=== PATIENT | male | born 1975 | race Caucasian/White ===

== ENCOUNTER 2016-10-15 07:28 | Emergency (ER) | payer BC, OTHER ==
[2016-10-15 07:34] VITALS: BP 163/96
[2016-10-15 08:12] LABS: CHLORIDE,CL 102 mmol/L (98-115); SODIUM,NA 138 mmol/L (136-145)
[2016-10-15] MEDS ORDERED: Sodium Chloride 0.9% 5 ML Syringe FLUSH PRN (08:17)
[2016-10-15] MEDS ORDERED: Sodium Chloride 0.9% 1,000 ML IV ONE ×2 (08:18→08:52)
--- NOTE | 2016-10-15 08:27 | EDM.PDOC ---
ED HPI GENERAL MEDICAL PROBLEM - General Chief Complaint: General Stated Complaint: MUSCLE CRAMPING Time Seen by Provider: 10/15/16 08:17 Source of Information: Reports: Patient History Limitations: Reports: No Limitations - History of Present Illness INITIAL COMMENTS - FREE TEXT/NARRATIVE: PT STATES HE DEVELOPED BILAT LOWER EXT MUSCLE CRAMPING THIS AM WHILE AT WORK. NO H/O SAME OR EXTENSIVE WORK IN HOT ENVIRONMENT. DENIES CP, SOB, N/V/D, OR LACK OF FLUID INTAKE. ADMITS TO CHANGE IN COAG MEDS BUT WAS 10 DAYS AGO AND DENIES ANY RECENT BLEEDING. Onset: Today Onset Date: 10/15/16 Onset Time: 06:00 Duration: Hour(s): Location: Reports: Lower Extremity, Left, Lower Extremity, Right Quality: Reports: Other (CRAMPING) Improves with: Reports: None Worsens with: Reports: None Associated Symptoms: Reports: No Other Symptoms. Denies: Chest Pain, Shortness of Breath Bilateral Lower Leg Pain Score (Numeric/FACES): 10 - Related Data Allergies Allergy/AdvReac Type Severity Reaction Status Date / Time No Known Allergies Allergy Verified 10/15/16 07:38 Home Meds: Home Meds Albuterol Sulfate [Albuterol Sulfate HFA] 1 - 2 puff PO Q4H PRN 04/22/14 [ History] Metoprolol Tartrate [Lopressor] 50 mg PO BID 04/22/14 [History] Diltiazem [Cardizem CD] 120 mg PO DAILY 09/29/14 [History] Diltiazem [Dilacor XR] 240 mg PO DAILY 09/29/14 [History] Potassium Chloride [Klor-Con M20] 40 meq PO DAILY 09/29/14 [History] Acetaminophen [Tylenol] 650 mg PO Q4H PRN 09/12/15 [History] Furosemide [Lasix] 60 mg PO DAILY 09/12/15 [History] Rivaroxaban [Xarelto] 20 mg PO DAILY 09/12/15 [History] Azelastine/Fluticasone [Dymista Nasal [place]] 2 spray NASBOTH DAILY 10/15/16 [ History] Past Medical History Cardiovascular History: Reports: Blood Clots/VTE/DVT, Hypertension Other Cardiovascular History: IVC filter 2009 Respiratory History: Reports: Asthma, PE Gastrointestinal History: Reports: Other (See Below) Other Gastrointestinal History: large intestine removed 2015 Musculoskeletal History: Reports: Fracture Other Musculoskeletal History: L rib fx x4 2013 Neurological History: Reports: Other (See Below) Other Neuro History: on antidepresantin the past Psychiatric History: Reports: Anxiety, Depression Dermatologic History: Reports: Eczema Other Dermatologic History: eczema - Infectious Disease History Infectious Disease History: Reports: Chicken Pox, MRSA - Past Surgical History HEENT Surgical History: Reports: Adenoidectomy, Tonsillectomy Cardiovascular Surgical History: Reports: Other (See Below) Other Cardiovascular Surgeries/Procedures: massive PE 2009. Respiratory Surgical History: Reports: None Other Respiratory Surgeries/Procedures: Filter placed for PE GI Surgical History: Reports: Appendectomy, Colonoscopy Neurological Surgical History: Reports: None Musculoskeletal Surgical History: Reports: Arthroscopic Knee Dermatological Surgical History: Reports: None Social & Family History - Tobacco Use Smoking Status *Q: Current Every Day Smoker Years of Tobacco use: 20 Packs/Tins Daily: 0.5 Used Tobacco, but Quit: No Month Tobacco Last Used: July 2015 Second Hand Smoke Exposure: No - Caffeine Use Caffeine Use: Reports: Tea - Alcohol Use Days Per Week of Alcohol Use: 0 - Recreational Drug Use Recreational Drug Use: No ED ROS GENERAL - Review of Systems Review Of Systems: ROS reveals no pertinent complaints other than HPI. Constitutional: Reports: No Symptoms HEENT: Reports: No Symptoms Respiratory: Reports: No Symptoms Cardiovascular: Reports: No Symptoms Endocrine: Reports: No Symptoms : Reports: No Symptoms Musculoskeletal: Reports: Muscle Pain, Muscle Stiffness Skin: Reports: No Symptoms Neurological: Reports: No Symptoms Psychiatric: Reports: No Symptoms Hematologic/Lymphatic: Reports: No Symptoms Immunologic: Reports: No Symptoms ED EXAM, GENERAL - Physical Exam Exam: See Below Exam Limited By: No Limitations General Appearance: Alert, WD/WN, No Apparent Distress Nose: Normal Inspection, No Blood Throat/Mouth: Normal Inspection, Normal Oropharynx, No Airway Compromise Head: Atraumatic, Normocephalic Neck: Normal Inspection, Supple, Non-Tender Respiratory/Chest: No Respiratory Distress, Lungs Clear, Normal Breath Sounds, No Accessory Muscle Use, Chest Non-Tender Cardiovascular: Regular Rate, Rhythm, No Murmur Peripheral Pulses: 2+: Femoral (L), Femoral (R), Popliteal (L), Popliteal (R), Posterior Tibial (L), Posterior Tibial (R), Dorsalis Pedis (L), Dorsalis Pedis ( R) GI/Abdominal: Normal Bowel Sounds, Soft, Non-Tender Back Exam: Normal Inspection. No: CVA Tenderness (L), CVA Tenderness (R) Extremities: No Pedal Edema, Leg Pain. No: Pedal Edema, Slow Capillary Refill, Joint Swelling, Increased Warmth, Mottled, Pallor, Redness Neurological: Alert, Oriented, Normal Cognition Psychiatric: Normal Affect, Normal Mood Skin Exam: Warm, Dry, Intact, Normal Color, No Rash Lymphatic: No Adenopathy Course - Vital Signs Last Recorded V/S: Last Vital Signs Temp 98.8 F 10/15/16 07:29 Pulse 77 10/15/16 07:29 Resp 20 10/15/16 07:29 BP 163/96 H 10/15/16 07:29 Pulse Ox 100 10/15/16 07:29 - Orders/Labs/Meds Orders: Active Orders 24 hr Category Date Time Status Peripheral IV Care [RC] . DIRECTED Care 10/15/16 08:18 Ordered URINALYSIS W/MICROSCOPIC [UA W/MICROSCOPIC] [URIN] Stat Lab 10/15/16 08:17 Uncollected Diazepam [Valium] Med 10/15/16 08:18 Once 5 mg IVPUSH ONETIME ONE Sodium Chloride 0.9% @ 999 MLS/HR (1000ml) Med 10/15/16 08:18 Ordered Sodium Chloride 0.9% [Normal Saline] 1,000 ml IV .BOLUS Sodium Chloride 0.9% [Syrex Flush] Med 10/15/16 08:17 Ordered 5 ml FLUSH Q8HR PRN Peripheral IV Insertion Adult [OM.PC] Routine Oth 10/15/16 08:17 Ordered Labs: Laboratory Tests 10/15/16 10/15/16 10/15/16 Range/Units 07:45 07:45 07:45 WBC 14.0 H (5.0-10.0) 10^3/uL RBC 5.19 (4.50-6.00) 10^6/uL Hgb 15.0 (13.0-17.0) g/dL Hct 44.6 (40.0-52.0) % MCV 85.8 (82.0-92.0) fL MCH 29.0 (27.0-31.0) pg MCHC 33.8 (32.0-36.0) g/dL RDW 13.5 (11.5-14.5) % Plt Count 366 H (150-300) 10^3/uL MPV 7.4 (7.4-10.4) fL Neut % (Auto) 70.7 H (50.0-70.0) % Lymph % (Auto) 18.0 L (20.0-40.0) % [place] % (Auto) 9.3 H (2.0-8.0) % Eos % (Auto) 1.2 (1.0-3.0) % Baso % (Auto) 0.8 (0.0-1.0) % Neut # (Auto) 9.9 H (2.5-7.0) 10^3/uL Lymph # (Auto) 2.5 (1.0-4.0) 10^3/uL [place] # (Auto) 1.3 H (0.1-0.8) 10^3/uL Eos # (Auto) 0.2 (0.1-0.3) 10^3/uL Baso # (Auto) 0.1 (0.0-0.1) 10^3/uL PT 11.3 (8.9-11.4) SEC INR 1.1 (0.9-1.1) APTT 30.1 (20.8-31.2) SEC Sodium 138 (136-145) mmol/L Potassium 3.8 (3.3-5.3) mmol/L Chloride 102 (98-115) mmol/L Carbon Dioxide 25.7 (21.0-32.0) mmol/L BUN 13 (6-25) mg/dL Creatinine 0.72 (0.51-1.17) mg/dL Est Cr Clr Drug Dosing TNP Estimated GFR (MDRD) > 60 mL/min Glucose 113 H (70-110) mg/dL Calcium 8.8 (8.7-10.3) mg/dL - Re-Assessments/Exams Free Text/Narrative Re-Assessment/Exam: 10/15/16 09:21 PT AFEBRILE, NONTOXIC APPEARING, VSS, CRAMPING RESOLVED. Departure - Departure Time of Disposition: 10:40 Disposition: Home, Self-Care 01 Condition: Good Clinical Impression: Dehydration, mild - Discharge Information Instructions: Muscle Cramps and Spasms, [id number], Dehydration, Adult, Easy- to-Read Forms: ED Department Discharge Additional Instructions: F/U WITH PCP IN NEXT 2-3 DAYS - My Orders Last 24 Hours: My Active Orders 10/15/16 08:17 URINALYSIS W/MICROSCOPIC [UA W/MICROSCOPIC] [URIN] Stat Sodium Chloride 0.9% [Syrex Flush] 5 ml FLUSH Q8HR PRN Peripheral IV Insertion Adult [OM.PC] Routine 10/15/16 08:18 Peripheral IV Care [RC] . DIRECTED Diazepam [Valium] 5 mg IVPUSH ONETIME ONE Sodium Chloride 0.9% @ 999 MLS/HR (1000ml) Sodium Chloride 0.9% [Normal Saline] 1,000 ml IV .BOLUS - Assessment/Plan Last 24 Hours: My Active Orders 10/15/16 08:17 URINALYSIS W/MICROSCOPIC [UA W/MICROSCOPIC] [URIN] Stat Sodium Chloride 0.9% [Syrex Flush] 5 ml FLUSH Q8HR PRN Peripheral IV Insertion Adult [OM.PC] Routine 10/15/16 08:18 Peripheral IV Care [RC] . DIRECTED Diazepam [Valium] 5 mg IVPUSH ONETIME ONE Sodium Chloride 0.9% @ 999 MLS/HR (1000ml) Sodium Chloride 0.9% [Normal Saline] 1,000 ml IV .BOLUS Assessment:: DEHYDRATION Plan: F/U WITH PCP
== END 2016-10-15 10:45 | disposition home or self-care (01) ==
LOC: KA.ED 07:28
DX: E86.0 Dehydration (principal); J45.909 Unspecified asthma, uncomplicated; F41.9 Anxiety disorder, unspecified; F17.210 Nicotine dependence, cigarettes, uncomplicated; F32.9 Major depressive disorder, single episode, unspecified; Z86.711 Personal history of pulmonary embolism; Z90.89 Acquired absence of other organs
CPT/HCPCS: 36415; 80048; 81001; 82550; 85025; 85610; 85730; 96361; 96374; 99283; J3360; J7030

== ENCOUNTER 2018-12-03 17:42 | Emergency (ER) | payer SELFPAY ==
[2018-12-03 18:02] VITALS: BP 130/90; PULSE 124
--- NOTE | 2018-12-03 18:57 | EDM.PDOC ---
ED HPI GENERAL MEDICAL PROBLEM - General Chief Complaint: General Stated Complaint: NEEDS TO DETOX Time Seen by Provider: 12/03/18 18:38 Source of Information: Reports: Patient, Other (friend) History Limitations: Reports: No Limitations - History of Present Illness INITIAL COMMENTS - FREE TEXT/NARRATIVE: Patient presents requesting detox placement. He is having alcohol withdrawal and self-medicating with alcohol to treat the symptoms. For the last 2.5 weeks he has been drinking heavily; at least 18 drinks/day. The last few days he has been trying to stop but requires 12 drinks/day to keep withdrawal symptoms at bay. He vomits every morning both with heavy drinking and in withdrawal. He starts to sweat due to withdrawal and drinks to treat that. Prior to the last 2.5 weeks he had been alcohol free for five years but had gone through treatment 6 times (30 days x 4, 45 days x 1, 90 days x 1). He has talked to [facility] and he could do treatment there but not detox. Last drink was 4 hours ago. - Related Data Allergies Allergy/AdvReac Type Severity Reaction Status Date / Time No Known Allergies Allergy Verified 12/03/18 18:02 Home Meds: Home Meds Metoprolol Tartrate [Lopressor] 50 mg PO BID 04/22/14 [History] Diltiazem [Cardizem CD] 120 mg PO DAILY 09/29/14 [History] Diltiazem [Dilacor XR] 240 mg PO DAILY 09/29/14 [History] Acetaminophen [Tylenol] 650 mg PO Q4H PRN 09/12/15 [History] Rivaroxaban [Xarelto] 20 mg PO DAILY@2100 09/12/15 [History] Albuterol [Ventolin HFA] 1 - 2 puff INH Q4H PRN 02/18/18 [History] Budesonide/Formoterol Fumarate [Symbicort 160-4.5 Mcg Inhaler] 2 puff IH BID 07/03 [History] Ibuprofen [Advil] 200 - 600 mg PO Q6H PRN 02/18/18 [History] Triamcinolone Acetonide [Kenalog 0.1% Crm] 1 gm TOP TID PRN 02/18/18 [History] Topiramate [Topamax] 25 mg PO BID #30 tab 02/23/18 [Rx] Furosemide [Lasix] 60 mg PO DAILY 12/03/18 [History] Potassium Chloride 40 meq PO DAILY 12/03/18 [History] Past Medical History HEENT History: Reports: None Cardiovascular History: Reports: Blood Clots/VTE/DVT, Hypertension Other Cardiovascular History: IVC filter 2009 Respiratory History: Reports: Asthma, PE Gastrointestinal History: Reports: Other (See Below) Other Gastrointestinal History: large intestine removed 2015 Genitourinary History: Reports: None Musculoskeletal History: Reports: Fracture Other Musculoskeletal History: L rib fx x4 2013 Neurological History: Reports: Other (See Below) Other Neuro History: on antidepresantin the past Psychiatric History: Reports: Anxiety, Depression Dermatologic History: Reports: Eczema Other Dermatologic History: eczema - Infectious Disease History Infectious Disease History: Reports: Chicken Pox, MRSA - Past Surgical History HEENT Surgical History: Reports: Adenoidectomy, Tonsillectomy Cardiovascular Surgical History: Reports: Other (See Below) Other Cardiovascular Surgeries/Procedures: massive PE 2009. Respiratory Surgical History: Reports: None Other Respiratory Surgeries/Procedures: Filter placed for PE GI Surgical History: Reports: Appendectomy, Colonoscopy Neurological Surgical History: Reports: None Musculoskeletal Surgical History: Reports: Arthroscopic Knee Dermatological Surgical History: Reports: None Social & Family History - Family History Family Medical History: Noncontributory - Tobacco Use Smoking Status *Q: Current Every Day Smoker Years of Tobacco use: 1 Packs/Tins Daily: 0.3 Second Hand Smoke Exposure: No - Caffeine Use Caffeine Use: Reports: None - Alcohol Use Days Per Week of Alcohol Use: 7 Number of Drinks Per Day: 6 Total Drinks Per Week: 42 - Recreational Drug Use Recreational Drug Use: Yes Drug Use in Last 12 Months: Yes Recreational Drug Type: Reports: Marijuana/Hashish ED ROS GENERAL - Review of Systems Review Of Systems: See Below Constitutional: Denies: Fever, Chills, Weakness HEENT: Reports: No Symptoms Respiratory: Denies: Shortness of Breath, Cough Cardiovascular: Denies: Chest Pain, Lightheadedness, Syncope Endocrine: Reports: No Symptoms GI/Abdominal: Reports: Abdominal Pain (related to vomiting), Diarrhea (chronic since total colectomy due to cancer), Decreased Appetite (hasn't eaten in 3 days ), Vomiting : Denies: Dysuria, Flank Pain Musculoskeletal: Reports: No Symptoms Skin: Reports: Diaphoresis (daily, withdrawal related). Denies: Cyanosis, Jaundice, Mottled, Pallor Neurological: Denies: Confusion, Dizziness, Seizure, Syncope, Trouble Speaking, Difficulty Walking Psychiatric: Denies: Agitation, Anxiety, Confusion Hematologic/Lymphatic: Denies: Anemia ED EXAM, GENERAL - Physical Exam Exam: See Below Exam Limited By: No Limitations General Appearance: Alert, WD/WN, No Apparent Distress Eye Exam: Bilateral Eye: EOMI, Normal Inspection, PERRL Ears: Normal External Exam, Hearing Grossly Normal Nose: Normal Inspection, No Blood Throat/Mouth: Normal Inspection, Normal Lips, Normal Voice, No Airway Compromise Head: Atraumatic, Normocephalic Neck: Normal Inspection, Full Range of Motion Respiratory/Chest: No Respiratory Distress, Lungs Clear, Normal Breath Sounds, No Accessory Muscle Use Cardiovascular: Regular Rate, Rhythm, No Murmur GI/Abdominal: Normal Bowel Sounds, Soft, No Organomegaly, No Distention, Tender (epigastric) Back Exam: Normal Inspection, Full Range of Motion. No: CVA Tenderness (L), CVA Tenderness (R) Extremities: Normal Inspection, Normal Range of Motion Neurological: Alert, Oriented, Normal Cognition, No Motor/Sensory Deficits Psychiatric: Normal Affect, Normal Mood Skin Exam: Warm, Dry, Intact, Normal Color, No Rash Course - Vital Signs Last Recorded V/S: Last Vital Signs Temp 98.3 F 12/03/18 17:56 Pulse 124 H 12/03/18 17:56 Resp 18 12/03/18 17:56 BP 130/90 12/03/18 17:56 Pulse Ox 93 L 12/03/18 17:56 - Orders/Labs/Meds Labs: Laboratory Tests 12/03/18 12/03/18 12/03/18 Range/Units 18:30 18:30 18:56 WBC 9.34 (5.00-10.00) 10^3/uL RBC 4.52 (4.50-6.00) 10^6/uL Hgb 16.3 (13.0-17.0) g/dL Hct 46.3 (40.0-52.0) % MCV 102.4 H D (82.0-92.0) fL MCH 36.1 H (27.0-31.0) pg MCHC 35.2 (32.0-36.0) g/dL RDW 15.6 H (11.5-14.5) % Plt Count 317 (150-400) 10^3/uL MPV 8.7 (7.4-10.4) fL Immature Gran % (Auto) 0.3 (0.0-5.0) % Neut % (Auto) 55.7 (50.0-70.0) % Lymph % (Auto) 28.8 (20.0-40.0) % [place] % (Auto) 11.3 H (2.0-8.0) % Eos % (Auto) 2.9 (1.0-3.0) % Baso % (Auto) 1.0 (0.0-1.0) % Immature Gran # (Auto) 0.03 (0.00-0.50) 10^3/uL Neut # (Auto) 5.20 (2.50-7.00) 10^3/uL Lymph # (Auto) 2.69 (1.00-4.00) 10^3/uL [place] # (Auto) 1.06 H (0.10-0.80) 10^3/uL Eos # (Auto) 0.27 (0.10-0.30) 10^3/uL Baso # (Auto) 0.09 (0.00-0.10) 10^3/uL Sodium 141 (136-145) mmol/L Potassium 3.7 (3.3-5.3) mmol/L Chloride 103 (98-115) mmol/L Carbon Dioxide 23.9 (21.0-32.0) mmol/L Anion Gap 17.8 H (5-15) mmol/L BUN 4 L (6-25) mg/dL Creatinine 0.59 (0.51-1.17) mg/dL Est Cr Clr Drug Dosing 194.94 mL/min Estimated GFR (MDRD) > 60 mL/min Glucose 92 (75 - 99) mg/dL Calcium 9.0 (8.7-10.3) mg/dL Total Bilirubin 0.5 (0.2-1.0) mg/dL AST 96 H (15-37) U/L ALT 62 (12-78) U/L Alkaline Phosphatase 116 (46-116) IU/L Total Protein 7.6 (6.4-8.2) g/dL Albumin 3.72 (3.00-4.80) g/dL Urine Opiates Screen Negative (NEGATIVE) Ur Oxycodone Screen Negative (NEGATIVE) Urine Methadone Screen Negative (NEGATIVE) Ur Propoxyphene Screen Negative (NEGATIVE) Ur Barbiturates Screen Negative (NEGATIVE) Ur Tricyclics Screen Negative (NEGATIVE) Ur Phencyclidine Scrn Negative (NEGATIVE) Ur Amphetamine Screen Negative (NEGATIVE) U Methamphetamines Scrn Negative (NEGATIVE) U Benzodiazepines Scrn Negative (NEGATIVE) U Cocaine Metab Screen Negative (NEGATIVE) U Marijuana (THC) Screen Positive H (NEGATIVE) Ethyl Alcohol 378 H* (NONE DETECTED) mg/dL - Re-Assessments/Exams Free Text/Narrative Re-Assessment/Exam: 12/03/18 19:42 ETOH 378. Marijuana positive. Rest of labs okay. Patient would like to go to detox at [facility] [place] if available. I called them and they will call back shortly. 12/03/18 20:54 Patient left while we were waiting console manager back from [facility] in [place] regarding detox. I didn't realize he had gone for several minutes as he must have slipped out the back exam door with his ride (so at least he isn't driving) . We called him and he says he is going to [facility] in [place] tomorrow. I let [facility] know this and hopefully they can get him into detox tomorrow if he shows. Departure - Departure Time of Disposition: 20:30 Disposition: Against Medical Advice 07 Condition: Good Clinical Impression: Alcohol dependence with withdrawal, unspecified Qualifiers: Complication of substance-induced condition: uncomplicated Qualified Code(s): F10.230 - Alcohol dependence with withdrawal, uncomplicated Clinical Impression: (Ruled Out): Acute renal failure due to angiotensin converting enzyme (MONICA) inhibitor, Hypotension - Discharge Information Referrals: Cielo Gutierrez MD [Primary Care Provider] - Forms: ED Department Discharge
[2018-12-03 19:04] LABS: ANION GAP 17.8 mmol/L (5-15); CHLORIDE,CL 103 mmol/L (98-115); SODIUM,NA 141 mmol/L (136-145)
[2018-12-03 19:11] LABS: TCA SCREEN,URINE NEGATIVE (NEGATIVE); THC SCREEN,URINE 50 NG/ML POSITIVE (NEGATIVE)
[2018-12-03 19:12] LABS: BARBITURATE SCREEN,URINE NEGATIVE (NEGATIVE); BENZODIAZEPINES SCREEN,URINE NEGATIVE (NEGATIVE)
== END 2018-12-03 21:00 | disposition left against medical advice (07) ==
LOC: KA.ED 17:42
DX: F10.230 Alcohol dependence with withdrawal, uncomplicated (principal); I10 Essential (primary) hypertension; F17.210 Nicotine dependence, cigarettes, uncomplicated; Z98.890 Other specified postprocedural states
CPT/HCPCS: 36415; 80053; 80305-QW; 85025; 99283; 99284; G0480

== ENCOUNTER 2019-01-13 12:06 | Emergency (ER) | payer MEDICAID, OTHER ==
[2019-01-13 12:27] VITALS: BP 151/92; PULSE 113
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
== END 2019-01-13 13:48 ==
LOC: KA.ED 12:06
DX: F32.9 Major depressive disorder, single episode, unspecified (principal); I10 Essential (primary) hypertension; J45.909 Unspecified asthma, uncomplicated; Z86.718 Personal history of other venous thrombosis and embolism; Z86.711 Personal history of pulmonary embolism; Z87.891 Personal history of nicotine dependence; Z79.01 Long term (current) use of anticoagulants; Z79.51 Long term (current) use of inhaled steroids; Z79.899 Other long term (current) drug therapy
CPT/HCPCS: 99284

== ENCOUNTER 2019-08-15 23:46 | Emergency (ER) | payer SELFPAY ==
[2019-08-16] MEDS ORDERED: Albuterol/Ipratropium 3.0-0.5 MG/3 ML Neb Soln NEB ONE (00:06)
--- NOTE | 2019-08-16 00:17 | EDM.PDOC ---
ED HPI GENERAL MEDICAL PROBLEM - General Chief Complaint: Behavioral/Psych Stated Complaint: needs clearance for [facility] Time Seen by Provider: 08/16/19 00:05 Source of Information: Reports: Patient History Limitations: Reports: No Limitations - History of Present Illness INITIAL COMMENTS - FREE TEXT/NARRATIVE: Patient brought to ER by a friend. Another friend called prior to arrival with info that patient was suicidal and friend had called [facility] in [place] who could take him for mental health treatment but needed medical clearance first. Patient tells me that his primary problem is difficulty breathing, cough and sore throat for the last 6 weeks and that he "just can't do this anymore". He admits to depression and thoughts of suicide. He has been on courses of amoxicillin and zithromax, as well as a 5-day course of prednisone, in the last 6 weeks without improvement. He has asthma and uses Symbicort bid and rescue inhaler at home. He has been tested for covid twice (negative) and isn't aware of any covid contacts. - Related Data Allergies Allergy/AdvReac Type Severity Reaction Status Date / Time No Known Drug Allergies Allergy Other Verified 08/16/19 00:38 Give no Benzoids Allergy Severe Other Uncoded 01/16/19 10:49 GIVE NO DEPENDANT MEDICATIONS Allergy Severe Other Uncoded 01/13/19 12:10 Home Meds: Home Meds Metoprolol Tartrate [Lopressor] 50 mg PO BID 04/22/14 [History] Diltiazem [Cardizem CD] 120 mg PO DAILY 09/29/14 [History] Diltiazem [Dilacor XR] 240 mg PO DAILY 09/29/14 [History] Albuterol [Ventolin HFA] 1 - 2 puff INH Q4H PRN 02/18/18 [History] Budesonide/Formoterol Fumarate [Symbicort 160-4.5 Mcg Inhaler] 2 puff IH BID 07/03 [History] Potassium Chloride 40 meq PO DAILY 12/03/18 [History] Past Medical History HEENT History: Reports: None Cardiovascular History: Reports: Blood Clots/VTE/DVT, Hypertension Other Cardiovascular History: IVC filter 2009 Respiratory History: Reports: Asthma, PE Gastrointestinal History: Reports: Other (See Below) Other Gastrointestinal History: large intestine removed aug. 2016 Genitourinary History: Reports: None Musculoskeletal History: Reports: Fracture Other Musculoskeletal History: L rib fx x4 2013 Neurological History: Reports: Other (See Below) Other Neuro History: on antidepresantin the past Psychiatric History: Reports: Anxiety, Depression Dermatologic History: Reports: Eczema Other Dermatologic History: eczema - Infectious Disease History Infectious Disease History: Reports: Chicken Pox, MRSA - Past Surgical History HEENT Surgical History: Reports: Adenoidectomy, Tonsillectomy Cardiovascular Surgical History: Reports: Other (See Below) Other Cardiovascular Surgeries/Procedures: massive PE 2009. Respiratory Surgical History: Reports: None Other Respiratory Surgeries/Procedures: Filter placed for PE GI Surgical History: Reports: Appendectomy, Colonoscopy Neurological Surgical History: Reports: None Musculoskeletal Surgical History: Reports: Arthroscopic Knee Dermatological Surgical History: Reports: None Social & Family History - Family History Family Medical History: Noncontributory - Caffeine Use Caffeine Use: Reports: None ED ROS GENERAL - Review of Systems Review Of Systems: See Below Constitutional: Denies: Fever, Chills, Malaise, Weakness HEENT: Reports: Throat Pain. Denies: Ear Pain, Throat Swelling, Vision Change Respiratory: Reports: Shortness of Breath, Cough Cardiovascular: Denies: Chest Pain, Lightheadedness, Syncope GI/Abdominal: Denies: Abdominal Pain, Vomiting : Reports: No Symptoms Musculoskeletal: Reports: No Symptoms Skin: Denies: Cyanosis, Jaundice, Mottled, Pallor, Diaphoresis Neurological: Denies: Confusion, Dizziness, Headache, Numbness, Seizure, Syncope , Trouble Speaking, Difficulty Walking Psychiatric: Reports: Anxiety, Depression, Suicidal Ideation ED EXAM, GENERAL - Physical Exam Exam: See Below Exam Limited By: No Limitations General Appearance: Alert, WD/WN, No Apparent Distress Eye Exam: Bilateral Eye: EOMI, Normal Inspection, PERRL Ears: Normal External Exam, Hearing Grossly Normal Nose: Normal Inspection, No Blood Throat/Mouth: Normal Lips, Normal Voice, No Airway Compromise, Inflammation (of posterior pharynx) Head: Atraumatic, Normocephalic Neck: Normal Inspection, Full Range of Motion Respiratory/Chest: Respiratory Distress (mild), Wheezing (mild with inspiration , worse with expiration), Prolonged Expiration, Other (tachypnea). No: Crackles , Rales, Rhonchi, Stridor Cardiovascular: No Murmur, Tachycardia GI/Abdominal: No Distention Back Exam: Normal Inspection, Full Range of Motion Extremities: Normal Inspection, Normal Range of Motion Neurological: Alert, Oriented, Normal Cognition, No Motor/Sensory Deficits Psychiatric: Anxious, Depressed Mood Skin Exam: Warm, Dry, Intact, Normal Color, No Rash Course - Vital Signs Last Recorded V/S: Last Vital Signs Temp 95.6 F L 08/15/19 23:46 Pulse 114 H 08/16/19 01:14 Resp 20 08/16/19 01:14 BP 131/92 H 08/16/19 01:14 Pulse Ox 99 08/16/19 01:14 - Orders/Labs/Meds Orders: Active Orders 24 hr Category Date Time Status EKG Documentation Completion [RC] ASDIRECTED Care 08/16/19 00:28 Ordered RT Aerosol Therapy [RC] ASDIRECTED Care 08/16/19 00:06 Ordered Chest 2V [CR] Stat Exams 08/16/19 00:06 Ordered Sodium Chloride 0.9% @ 999 MLS/HR (1000ml) Med 08/16/19 01:31 Ordered Sodium Chloride 0.9% [Normal Saline] 1,000 ml IV .BOLUS Sodium Chloride 0.9% [Saline Flush] Med 08/16/19 00:45 Active 10 ml FLUSH Q8HR PRN Saline Lock Insert [OM.PC] Routine Oth 08/16/19 00:45 Ordered EKG 12 Lead [EK] Stat Ther 08/16/19 00:27 Ordered Medication Orders Sodium Chloride (Normal Saline) 1,000 mls @ 999 mls/hr IV .BOLUS ONE Stop: 08/16/19 02:31 Sodium Chloride (Saline Flush) 10 ml FLUSH Q8HR PRN PRN Reason: keep vein open Last Admin: 08/16/19 01:12 Dose: 10 ml Labs: Laboratory Tests 08/16/19 08/16/19 08/16/19 Range/Units 00:50 00:50 00:50 WBC 8.41 (5.00-10.00) 10^3/uL RBC 4.82 (4.50-6.00) 10^6/uL Hgb 16.5 D (13.0-17.0) g/dL Hct 47.1 (40.0-52.0) % MCV 97.7 H (82.0-92.0) fL MCH 34.2 H (27.0-31.0) pg MCHC 35.0 (32.0-36.0) g/dL RDW 12.8 (11.5-14.5) % Plt Count 185 (150-400) 10^3/uL MPV 9.8 (7.4-10.4) fL Immature Gran % (Auto) 0.1 (0.0-5.0) % Neut % (Auto) 46.3 L (50.0-70.0) % Lymph % (Auto) 36.3 (20.0-40.0) % [place] % (Auto) 12.7 H (2.0-8.0) % Eos % (Auto) 3.3 H (1.0-3.0) % Baso % (Auto) 1.3 H (0.0-1.0) % Neut # (Auto) 3.89 (2.50-7.00) 10^3/uL Lymph # (Auto) 3.05 (1.00-4.00) 10^3/uL [place] # (Auto) 1.07 H (0.10-0.80) 10^3/uL Eos # (Auto) 0.28 (0.10-0.30) 10^3/uL Baso # (Auto) 0.11 H (0.00-0.10) 10^3/uL Immature Gran # (Auto) 0.01 (0.00-0.50) 10^3/uL Sodium 140 (136-145) mmol/L Potassium 4.5 (3.3-5.3) mmol/L Chloride 102 (98-115) mmol/L Carbon Dioxide 19.8 L (21.0-32.0) mmol/L Anion Gap 22.7 H (5-15) mmol/L BUN 7 (6-25) mg/dL Creatinine 0.75 (0.51-1.17) mg/dL Est Cr Clr Drug Dosing 151.79 mL/min Estimated GFR (MDRD) > 60 mL/min Glucose 89 (75 - 99) mg/dL Lactic Acid 4.1 H (0.4-2.0) mmol/L Calcium 9.0 (8.7-10.3) mg/dL Ethyl Alcohol (NONE DETECTED) mg/dL 08/16/19 Range/Units 00:50 WBC (5.00-10.00) 10^3/uL RBC (4.50-6.00) 10^6/uL Hgb (13.0-17.0) g/dL Hct (40.0-52.0) % MCV (82.0-92.0) fL MCH (27.0-31.0) pg MCHC (32.0-36.0) g/dL RDW (11.5-14.5) % Plt Count (150-400) 10^3/uL MPV (7.4-10.4) fL Immature Gran % (Auto) (0.0-5.0) % Neut % (Auto) (50.0-70.0) % Lymph % (Auto) (20.0-40.0) % [place] % (Auto) (2.0-8.0) % Eos % (Auto) (1.0-3.0) % Baso % (Auto) (0.0-1.0) % Neut # (Auto) (2.50-7.00) 10^3/uL Lymph # (Auto) (1.00-4.00) 10^3/uL [place] # (Auto) (0.10-0.80) 10^3/uL Eos # (Auto) (0.10-0.30) 10^3/uL Baso # (Auto) (0.00-0.10) 10^3/uL Immature Gran # (Auto) (0.00-0.50) 10^3/uL Sodium (136-145) mmol/L Potassium (3.3-5.3) mmol/L Chloride (98-115) mmol/L Carbon Dioxide (21.0-32.0) mmol/L Anion Gap (5-15) mmol/L BUN (6-25) mg/dL Creatinine (0.51-1.17) mg/dL Est Cr Clr Drug Dosing mL/min Estimated GFR (MDRD) mL/min Glucose (75 - 99) mg/dL Lactic Acid (0.4-2.0) mmol/L Calcium (8.7-10.3) mg/dL Ethyl Alcohol 368 H* (NONE DETECTED) mg/dL Meds: Medications Generic Name Dose Route Start Last Admin Trade Name Freq PRN Reason Stop Dose Admin Sodium Chloride 1,000 mls @ 999 mls/hr 08/16/19 01:31 Normal Saline IV 08/16/19 02:31 .BOLUS ONE Sodium Chloride 10 ml 08/16/19 00:45 08/16/19 01:12 Saline Flush FLUSH 10 ml Q8HR PRN Administration keep vein open Discontinued Medications Generic Name Dose Route Start Last Admin Trade Name Collin PRN Reason Stop Dose Admin Albuterol/Ipratropium 3 ml 08/16/19 00:06 08/16/19 00:16 Duoneb 3.0-0.5 Mg/3 Ml NEB 08/16/19 00:07 3 ml ONETIME ONE Administration Lorazepam 0.5 mg 08/16/19 00:32 08/16/19 01:08 Ativan PO 08/16/19 00:33 0.5 mg ONETIME ONE Administration Lorazepam Confirm 08/16/19 00:34 08/16/19 01:08 Ativan Administered 08/16/19 00:35 0.5 mg Dose Administration 0.5 mg .ROUTE .STK-MED ONE Methylprednisolone Sodium Succinate 125 mg 08/16/19 00:42 08/16/19 01:09 Solu-Medrol IVPUSH 08/16/19 00:43 125 mg ONETIME ONE Administration - Re-Assessments/Exams Free Text/Narrative Re-Assessment/Exam: 08/16/19 00:44 In xray patient told tech that he wanted euthanasia. Patient is obviously anxious with mild agitation. He is coughing frequently. He tells me he drinks more than 8 cups of water daily. He has had 3 beers today ; uses marijuana occasionally. 08/16/19 01:28 Waiting information assistant back from [facility] hospitalist. Patient agreed to transfer to [place] to see pulmonology. I feel he needs to get the respiratory issues cleared up before psychiatric treatment but I feel should definitely get the psychiatric treatment immediately following medical clearance. He is exhibiting severe depression and is at risk of self harm I feel. 08/16/19 01:32 Labs are in and Etoh is 368. CBC and BMP are okay. 08/16/19 01:45 Dr. Mccann, hospitalist at [facility], called back and I discussed the complicated details of this patient with him. He accepted for transfer and they will have a sitter with him due to the suicidal ideation and the intoxication. We wait now information assistant back from [facility] with bed availability before ambulance transfer. 08/16/19 02:03 Late in the ER course we learned that patient had a history of DVT but hasn't been taking his Xarelto due to cost. With the 6-week course of current symptoms and good oxygen saturation currently, I feel this is stable and most likely asthma rather than PE. Discussed this with hospitalist and we considered CT before departure or anti-coagulation but we felt transfer with CT there prn would be best at this point. Departure - Departure Time of Disposition: 01:51 Disposition: DC/Tfer to Acute Hospital 02 Condition: Serious Clinical Impression: Respiratory distress, acute, Asthma, Anxiety, Depression, Suicidal ideation, Depression with suicidal ideation, Alcohol intoxication - Discharge Information Forms: ED Department Discharge Sepsis Event Note - Focused Exam Vital Signs: Vital Signs Temp Pulse Resp BP Pulse Ox 08/16/19 01:14 114 H 20 131/92 H 99 08/15/19 23:46 95.6 F L 123 H 24 H 117/89 95 Date Exam was Performed: 08/16/19 Time Exam was Performed: 01:51 - My Orders Last 24 Hours: My Active Orders 08/16/19 00:06 RT Aerosol Therapy [RC] ASDIRECTED Chest 2V [CR] Stat 08/16/19 00:27 EKG 12 Lead [EK] Stat 08/16/19 00:28 EKG Documentation Completion [RC] ASDIRECTED 08/16/19 00:45 Sodium Chloride 0.9% [Saline Flush] 10 ml FLUSH Q8HR PRN Saline Lock Insert [OM.PC] Routine 08/16/19 01:31 Sodium Chloride 0.9% @ 999 MLS/HR (1000ml) Sodium Chloride 0.9% [Normal Saline] 1,000 ml IV .BOLUS - Assessment/Plan Last 24 Hours: My Active Orders 08/16/19 00:06 RT Aerosol Therapy [RC] ASDIRECTED Chest 2V [CR] Stat 08/16/19 00:27 EKG 12 Lead [EK] Stat 08/16/19 00:28 EKG Documentation Completion [RC] ASDIRECTED 08/16/19 00:45 Sodium Chloride 0.9% [Saline Flush] 10 ml FLUSH Q8HR PRN Saline Lock Insert [OM.PC] Routine 08/16/19 01:31 Sodium Chloride 0.9% @ 999 MLS/HR (1000ml) Sodium Chloride 0.9% [Normal Saline] 1,000 ml IV .BOLUS
[2019-08-16] MEDS ORDERED: LORazepam 0.5 MG Tab PO ONE (00:32)
[2019-08-16] MEDS ORDERED: LORazepam 0.5 MG Tab ONE (00:34)
[2019-08-16] MEDS ORDERED: methylPREDNISolone Sodium Succinate 125 MG/2 ML SDV IVPUSH ONE (00:42)
[2019-08-16] MEDS ORDERED: Sodium Chloride 0.9% 10 ML Syringe FLUSH PRN (00:45)
[2019-08-16 01:27] LABS: ANION GAP 22.7 mmol/L (5-15); CHLORIDE,CL 102 mmol/L (98-115); SODIUM,NA 140 mmol/L (136-145)
[2019-08-16] MEDS ORDERED: Sodium Chloride 0.9% 1,000 ML IV ONE (01:31)
--- NOTE | 2019-08-16 09:23 | CR ---
[id number] RAD/RAD Chest PA And Lateral EXAM: RAD Chest PA And Lateral INDICATION: WHEEZING COMPARISON: February 18, 2018. DISCUSSION: Median sternotomy wires. Cardiomediastinal silhouette is normal in size and contour. No infiltrate, effusion, pneumothorax, or edema. Chronic blunting of the right costophrenic angle. IMPRESSION: No acute cardiopulmonary abnormality. César Jay DO 08/16/19 0921 Thank you for allowing us to participate in the care of your patient.
[2019-08-17 03:54] VITALS: BP 115/72; PULSE 115
== END 2019-08-16 02:30 ==
LOC: KA.ED 23:46 → SUPCPDRO 23:46 → KA.ED 08-16 02:30
DX: J45.901 Unspecified asthma with (acute) exacerbation (principal); F41.9 Anxiety disorder, unspecified; I10 Essential (primary) hypertension; F32.9 Major depressive disorder, single episode, unspecified; F10.129 Alcohol abuse with intoxication, unspecified; Y90.8 Blood alcohol level of 240 mg/100 ml or more; Z79.899 Other long term (current) drug therapy
CPT/HCPCS: 93005; 94640; 96374; 99284; 99285-25

== ENCOUNTER 2019-09-03 21:54 | Emergency (ER) | payer MEDICAID ==
--- NOTE | 2019-09-03 22:48 | EDM.PDOCBH ---
ED HPI GENERAL MEDICAL PROBLEM - General Chief Complaint: Behavioral/Psych Stated Complaint: ANXIETY Time Seen by Provider: 09/03/19 22:28 Source of Information: Reports: Patient History Limitations: Reports: No Limitations - History of Present Illness INITIAL COMMENTS - FREE TEXT/NARRATIVE: Patient presents with anxiety. He is feeling very anxious and doesn't have anything to take for it. He was here two weeks ago and was transferred to [facility]. He tells me he was hospitalized for a week in [place] and saw the lung specialist but he didn't get into psychiatric treatment as we had arranged at the time of the transfer. Yesterday he called his PCP, Jase Peck NP who told him he would arrange treatment at a facility for him but patient doesn't have any details on where or when right now and is feeling like he is in limbo. With the level of anxiety he is feeling he is worried he will start drinking again. - Related Data Allergies Allergy/AdvReac Type Severity Reaction Status Date / Time No Known Drug Allergies Allergy Other Verified 09/03/19 22:02 Give no Benzoids Allergy Severe Other Uncoded 09/03/19 22:02 GIVE NO DEPENDANT MEDICATIONS Allergy Severe Other Uncoded 09/03/19 22:02 Home Meds: Home Meds Metoprolol Tartrate [Lopressor] 50 mg PO BID 04/22/14 [History] Diltiazem [Dilacor XR] 240 mg PO DAILY 09/29/14 [History] Albuterol [Ventolin HFA] 1 - 2 puff INH Q4H PRN 02/18/18 [History] Budesonide/Formoterol Fumarate [Symbicort 160-4.5 Mcg Inhaler] 2 puff IH BID [History] Potassium Chloride 40 meq PO DAILY 12/03/18 [History] Past Medical History HEENT History: Reports: None Cardiovascular History: Reports: Blood Clots/VTE/DVT, Hypertension Other Cardiovascular History: IVC filter 2009 Respiratory History: Reports: Asthma, PE Gastrointestinal History: Reports: Other (See Below) Other Gastrointestinal History: large intestine removed 2015 Genitourinary History: Reports: None Musculoskeletal History: Reports: Fracture Other Musculoskeletal History: L rib fx x4 2014 Neurological History: Reports: Other (See Below) Other Neuro History: on antidepresantin the past Psychiatric History: Reports: Anxiety, Depression, PTSD, Suicidal Ideation Other Psychiatric History: tired of living feeling like this Dermatologic History: Reports: Eczema Other Dermatologic History: eczema - Infectious Disease History Infectious Disease History: Reports: Chicken Pox, MRSA - Past Surgical History HEENT Surgical History: Reports: Adenoidectomy, Tonsillectomy Cardiovascular Surgical History: Reports: Other (See Below) Other Cardiovascular Surgeries/Procedures: massive PE 2009. Respiratory Surgical History: Reports: Other (See Below) Other Respiratory Surgeries/Procedures: Filter placed for PE GI Surgical History: Reports: Appendectomy, Colonoscopy Neurological Surgical History: Reports: None Musculoskeletal Surgical History: Reports: Arthroscopic Knee Dermatological Surgical History: Reports: None Social & Family History - Family History Family Medical History: Noncontributory - Tobacco Use Smoking Status *Q: Former Smoker Years of Tobacco use: 3 Used Tobacco, but Quit: Yes Month/Year Tobacco Last Used: 03/05 - Caffeine Use Caffeine Use: Reports: None - Recreational Drug Use Recreational Drug Type: Reports: Marijuana/Hashish Recreational Drug Use Frequency: Not Used In Over 1 Month ED ROS GENERAL - Review of Systems Review Of Systems: See Below Constitutional: Denies: Fever, Chills, Malaise, Weakness HEENT: Denies: Ear Pain, Throat Pain, Vision Change Respiratory: Denies: Shortness of Breath, Cough Cardiovascular: Denies: Chest Pain, Lightheadedness, Syncope GI/Abdominal: Denies: Abdominal Pain, Diarrhea, Vomiting : Reports: No Symptoms Musculoskeletal: Reports: No Symptoms Skin: Denies: Cyanosis, Jaundice, Mottled, Pallor, Diaphoresis Neurological: Denies: Confusion, Dizziness, Headache, Seizure, Syncope, Trouble Speaking, Difficulty Walking Psychiatric: Reports: Anxiety. Denies: Agitation, Confusion ED EXAM, BEHAVIORAL HEALTH - Physical Exam Exam: See Below Exam Limited By: No Limitations General Appearance: Alert, WD/WN, Anxious Eye Exam: Bilateral Eye: EOMI, Normal Inspection, PERRL Ears: Normal External Exam, Hearing Grossly Normal Nose: Normal Inspection, No Blood Throat/Mouth: Normal Inspection, Normal Lips, Normal Voice, No Airway Compromise Head: Atraumatic, Normocephalic Neck: Normal Inspection Respiratory/Chest: No Respiratory Distress, Lungs Clear, Normal Breath Sounds, No Accessory Muscle Use Cardiovascular: No Murmur, Tachycardia (mild, regular) Back Exam: Normal Inspection, Full Range of Motion Extremities: Normal Range of Motion Neurological: Alert, Normal Mood/Affect, Normal Cognition, No Motor/Sensory Deficits, Oriented x 3 Psychiatric: Alert, Normal Affect, Normal Cognition, Oriented, Depressed Mood. No: Suicidal Plan, Suicidal Thoughts Skin Exam: Warm, Dry, Intact, Normal color, No rash COURSE, BEHAVIORAL HEALTH COMP - Course Vital Signs: Last Vital Signs Temp 97.4 F 09/03/19 21:55 Pulse 119 H 09/03/19 21:55 Resp 18 09/03/19 21:55 BP 136/95 H 09/03/19 21:55 Pulse Ox 97 09/03/19 21:55 Re-Assessment/Re-Exam: I have seen this patient multiple times in the ER with anxiety and have sent him to [place] expecting something for long-term treatment of anxiety/psych to be done. Rodolfo I called [facility] provider on-call, Charity Denis who found that there is treatment planned next week at [facility] but unclear when it starts. She recalls the significant effect, of aggressive behavior, Lorazepam had on this patient when it was tried in the past (and why it is listed as allergy). I discussed the recommendations and treatment plan with patient. We also gave him Hydroxyzine 100 mg and sent one additional dose home with him. He will call his PCP tomorrow morning for further treatment details. Discharged to home in stable condition. Departure - Departure Time of Disposition: 23:22 Disposition: Home, Self-Care 01 Condition: Good Clinical Impression: Anxiety - Discharge Information Additional Instructions: Take the Hydroxyzine as directed. Call your PCP in the morning to get details about the treatment at [facility] next week, and to check about what you should do for anxiety between now and treatment. Sepsis Event Note (ED) - Evaluation Sepsis Screening Result: No Definite Risk - Focused Exam Vital Signs: Vital Signs Temp Pulse Resp BP Pulse Ox 09/03/19 21:55 97.4 F 119 H 18 136/95 H 97
[2019-09-03] MEDS: hydrOXYzine HCl 25 MG Tab PO ONE ×2 (23:13→23:17)
[2019-09-04 01:13] VITALS: BP 144/85; PULSE 100
== END 2019-09-03 23:28 | disposition home or self-care (01) ==
LOC: KA.ED 21:54
DX: F41.9 Anxiety disorder, unspecified (principal); I10 Essential (primary) hypertension; J45.909 Unspecified asthma, uncomplicated; Z87.891 Personal history of nicotine dependence; Z86.711 Personal history of pulmonary embolism; Z79.899 Other long term (current) drug therapy
CPT/HCPCS: 99283; 99284; A9270-GY

== ENCOUNTER 2022-04-08 18:40 | Emergency (ER) | payer MEDICAID, MEDICARE ==
[2022-04-08] MEDS ORDERED: Sodium Chloride 0.9% 1,000 ML ONE (18:57)
[2022-04-08] MEDS ORDERED: Sodium Chloride 0.9% 10 ML Syringe FLUSH PRN (19:02)
[2022-04-08] MEDS ORDERED: Sodium Chloride 0.9% 1,000 ML IV ONE ×2 (19:11→19:25)
[2022-04-08] MEDS ORDERED: Ondansetron 4 MG/2 ML SDV IVPUSH ONE (19:25)
[2022-04-08] MEDS ORDERED: HYDROmorphone 1 MG/ML Syringe IVPUSH ONE (19:25)
[2022-04-08] MEDS ORDERED: Albuterol/Ipratropium 3.0-0.5 MG/3 ML Neb Soln NEB ONE (19:25)
[2022-04-08 19:28] LABS: CHLORIDE,CL 101 mmol/L (98-107); SODIUM,NA 138 mmol/L (136-145)
[2022-04-08 19:31] LABS: ESTIMATED GFR 115 mL/min (>=60)
[2022-04-08] MEDS ORDERED: Iopamidol 755 Mg/ML 75 ML Bottle IVPUSH ONE (20:22)
[2022-04-08] MEDS ORDERED: Sodium Chloride 0.9% 50 ML IV SCH (20:30)
[2022-04-08 20:37] LABS: BARBITURATE SCREEN,URINE NEGATIVE (NEGATIVE); BENZODIAZEPINES SCREEN,URINE POSITIVE (NEGATIVE); TCA SCREEN,URINE NEGATIVE (NEGATIVE); THC SCREEN,URINE 50 NG/ML POSITIVE (NEGATIVE)
[2022-04-08 20:50] LABS: ANION GAP 12.1 mmol/L (5-15)
[2022-04-08 20:59] LABS: PTT,PARTIAL THROMBOPLSTIN TIME 26.2 SEC (22.8-31.4)
[2022-04-08 21:17] VITALS: BP 118/89; PULSE 116
[2022-04-08] MEDS ORDERED: Ciprofloxacin 500 MG Tab PO ONE (21:19)
[2022-04-08] MEDS ORDERED: methylPREDNISolone Sodium Succinate 125 MG/2 ML SDV IVPUSH ONE (21:20)
== END 2022-04-08 21:45 | disposition home or self-care (01) ==
LOC: KA.ED 18:40
DX: K91.850 Pouchitis (principal); E86.0 Dehydration; I10 Essential (primary) hypertension; J45.909 Unspecified asthma, uncomplicated
CPT/HCPCS: 71045; 74177; 80053; 80305-QW; 80307; 81001; 83605; 83690; 85025; 85610; 85730; 86140; 93005; 93010; 96361; 96374; 96375; 99284; 99284-25; A9270-GY; J1170; J2405; J2930; J7030; J7620-GY; Q9967

== ENCOUNTER 2022-10-07 21:20 | Inpatient (IN) | payer BC ==
[2022-10-07] MEDS ORDERED: Sodium Chloride 0.9% 1,000 ML IV ONE (21:40)
[2022-10-07] MEDS ORDERED: Sodium Chloride 0.9% 10 ML Syringe FLUSH PRN (21:40)
[2022-10-07 21:52] LABS: BASOPHILS ABSOLUTE AUTO 0.07 10^3/uL (0.00-0.10); BASOPHILS PERCENT AUTO 0.9 % (0.0-1.0); EOSINOPHILS PERCENT AUTO 1.3 % (1.0-3.0); HEMATOCRIT 40.8 % (40.0-52.0); IMMATURE GRAN ABSOLUTE AUTO 0.03 10^3/uL (0.00-0.50); IMMATURE GRAN PERCENT AUTO 0.4 % (0.0-5.0); LYMPHOCYTES ABSOLUTE AUTO 1.79 10^3/uL (1.00-4.00); LYMPHOCYTES PERCENT AUTO 23.4 % (20.0-40.0); MEAN CORPUSCULAR HGB CONC 36.8 g/dL (32.0-36.0); MEAN CORPUSCULAR VOLUME 103.3 fL (82.0-92.0); MONOCYTES PERCENT AUTO 11.8 % (2.0-8.0); NEUTROPHILS ABSOLUTE AUTO 4.76 10^3/uL (2.50-7.00); NEUTROPHILS PERCENT AUTO 62.2 % (50.0-70.0); PLATELET COUNT,PLT 150 10^3/uL (150-400); RED BLOOD CELL COUNT 3.95 10^6/uL (4.50-6.00); RED CELL DISTRIBUTION WIDTH 14.4 % (11.5-14.5); WHITE BLOOD CELL COUNT,WBC 7.65 10^3/uL (5.00-10.00)
[2022-10-07 22:16] LABS: ALANINE AMINOTRANSFERASE,ALT 109 U/L (14-63); ALKALINE PHOSPHATASE 135 U/L (46-116); ASPARTATE AMNIOTRANSFERASE,AST 239 U/L (15-37); BLOOD UREA NITROGEN,BUN 4 mg/dL (7-18); CALCIUM 7.6 mg/dL (8.7-10.3); CHLORIDE,CL 98 mmol/L (98-107); CREATININE 0.51 mg/dL (0.51-1.17); EST CRCL DRUG DOSING (CG) 216.31 mL/min; GLUCOSE RANDOM 129 mg/dL (70-140); PROTEIN TOTAL,TP 6.5 g/dL (6.4-8.2); SODIUM,NA 141 mmol/L (136-145)
[2022-10-07 22:17] LABS: ACETAMINOPHEN < 0.0 ug/mL (10.0-30.0); ESTIMATED GFR 127 mL/min (>=60)
[2022-10-07 22:18] LABS: ETHANOL BLOOD MEDICAL 409 mg/dL (NOT DETECTED)
[2022-10-07 22:38] LABS: AMPHETAMINES SCREEN, URINE NEGATIVE (NEGATIVE); BARBITURATE SCREEN,URINE NEGATIVE (NEGATIVE); BENZODIAZEPINES SCREEN,URINE NEGATIVE (NEGATIVE); COCAINE METABOLITES,URINE NEGATIVE (NEGATIVE); METHADONE SCREEN, URINE NEGATIVE (NEGATIVE); METHAMPHETAMINES SCREEN, URINE NEGATIVE (NEGATIVE); OXYCODONE SCREEN,URINE NEGATIVE (NEGATIVE); PCP SCREEN,URINE NEGATIVE (NEGATIVE); PROPOXYPHENE SCREEN,URINE NEGATIVE (NEGATIVE); TCA SCREEN,URINE NEGATIVE (NEGATIVE); THC SCREEN,URINE 50 NG/ML POSITIVE (NEGATIVE)
[2022-10-07] MEDS ORDERED: NS with KCl 40mEq 1,000 ML IV SCH (23:00)
[2022-10-07] MEDS ORDERED: Albuterol/Ipratropium 3.0-0.5 MG/3 ML Neb Soln NEB PRN (23:20)
[2022-10-07] MEDS ORDERED: LORazepam 2 MG/ML SDV IVPUSH ONE (23:57)
[2022-10-07] MEDS ORDERED: Metoprolol Tartrate 50 MG Tab PO ONE (23:59)
[2022-10-08] MEDS ORDERED: LORazepam 2 MG/ML SDV IVPUSH ONE (00:42)
[2022-10-08] MEDS ORDERED: chlordiazePOXIDE 25 MG Cap PO ONE ×2 (02:59→06:00)
[2022-10-08] MEDS: Ondansetron 4 MG/2 ML SDV IV PRN ×2 (03:05→21:38)
[2022-10-08] MEDS ORDERED: Sodium Chloride 0.9% 1,000 ML IV SCH (06:15)
[2022-10-08 07:21] LABS: BASOPHILS ABSOLUTE AUTO 0.06 10^3/uL (0.00-0.10); BASOPHILS PERCENT AUTO 1.3 % (0.0-1.0); EOSINOPHILS ABSOLUTE AUTO 0.11 10^3/uL (0.10-0.30); EOSINOPHILS PERCENT AUTO 2.3 % (1.0-3.0); HEMATOCRIT 34.6 % (40.0-52.0); HEMOGLOBIN 12.3 g/dL (13.0-17.0); IMMATURE GRAN ABSOLUTE AUTO 0.02 10^3/uL (0.00-0.50); IMMATURE GRAN PERCENT AUTO 0.4 % (0.0-5.0); LYMPHOCYTES ABSOLUTE AUTO 0.91 10^3/uL (1.00-4.00); LYMPHOCYTES PERCENT AUTO 19.2 % (20.0-40.0); MEAN CORPUSCULAR HEMOGLOBIN 37.8 pg (27.0-31.0); MEAN CORPUSCULAR HGB CONC 35.5 g/dL (32.0-36.0); MEAN CORPUSCULAR VOLUME 106.5 fL (82.0-92.0); MEAN PLATELET VOLUME 8.7 fL (7.4-10.4); MONOCYTES ABSOLUTE AUTO 0.51 10^3/uL (0.10-0.80); MONOCYTES PERCENT AUTO 10.7 % (2.0-8.0); NEUTROPHILS ABSOLUTE AUTO 3.14 10^3/uL (2.50-7.00); NEUTROPHILS PERCENT AUTO 66.1 % (50.0-70.0); PLATELET COUNT,PLT 113 10^3/uL (150-400); RED BLOOD CELL COUNT 3.25 10^6/uL (4.50-6.00); RED CELL DISTRIBUTION WIDTH 14.7 % (11.5-14.5); WHITE BLOOD CELL COUNT,WBC 4.75 10^3/uL (5.00-10.00)
[2022-10-08 07:38] LABS: ANION GAP 14.5 mmol/L (5-15); CALCIUM 6.9 mg/dL (8.7-10.3); CARBON DIOXIDE,CO2 27.9 mmol/L (21.0-32.0); CREATININE 0.58 mg/dL (0.51-1.17); EST CRCL DRUG DOSING (CG) 190.21 mL/min; MAGNESIUM 1.2 mg/dL (1.8-2.4); POTASSIUM,K 3.4 mmol/L (3.5-5.1)
[2022-10-08] MEDS ORDERED: Metoprolol Tartrate 50 MG Tab PO SCH (09:00)
[2022-10-08] MEDS ORDERED: Non-Formulary Medication 1 Each (Budesonide/Formoterol Fumarate 10.2 GM Hfa.Aer.Ad) IH SCH (09:00)
[2022-10-08] MEDS ORDERED: DILTIAZEM HCL 360 MG PO SCH (09:00)
[2022-10-08] MEDS: Diltiazem 180 MG Cap.CD PO SCH (09:58)
[2022-10-08] MEDS: Metoprolol Tartrate 50 MG Tab PO SCH ×2 (09:58→20:49)
[2022-10-08] MEDS: chlordiazePOXIDE 25 MG Cap PO SCH ×3 (09:59→18:48)
[2022-10-08] MEDS: Formoterol/Mometasone 200-5 MCG 8.8 GM Inhaler IH SCH ×2 (10:11→20:51)
[2022-10-08] MEDS ORDERED: Thiamine 100 MG Tab PO ONE (11:00)
[2022-10-08] MEDS: Folic Acid 1 MG Tab PO SCH (12:10)
[2022-10-08] MEDS: NS + KCl 20mEq/L 1,000 ML IV SCH ×2 (12:37→20:48)
[2022-10-08] MEDS ORDERED: Magnesium Sulfate/Water 2 GM in Premix Bag 1 BAG IV ONE (14:00)
[2022-10-08] MEDS ORDERED: LORazepam 2 MG/ML SDV IVPUSH SCH (14:00)
[2022-10-08] MEDS: Topiramate 25 MG Tab PO SCH ×2 (14:29→20:48)
[2022-10-08] MEDS: Rivaroxaban 10 MG Tab PO SCH (18:00)
[2022-10-08] MEDS ORDERED: QUEtiapine 25 MG Tab PO SCH (21:00)
[2022-10-08] MEDS: LORazepam 2 MG/ML SDV IVPUSH SCH (23:04)
[2022-10-09] MEDS: chlordiazePOXIDE 25 MG Cap PO SCH ×3 (02:58→18:00)
[2022-10-09] MEDS: NS + KCl 20mEq/L 1,000 ML IV SCH ×3 (04:51→20:28)
[2022-10-09 07:12] LABS: BASOPHILS ABSOLUTE AUTO 0.03 10^3/uL (0.00-0.10); BASOPHILS PERCENT AUTO 0.6 % (0.0-1.0); EOSINOPHILS ABSOLUTE AUTO 0.11 10^3/uL (0.10-0.30); EOSINOPHILS PERCENT AUTO 2.3 % (1.0-3.0); HEMATOCRIT 32.7 % (40.0-52.0); HEMOGLOBIN 11.7 g/dL (13.0-17.0); IMMATURE GRAN ABSOLUTE AUTO 0.02 10^3/uL (0.00-0.50); IMMATURE GRAN PERCENT AUTO 0.4 % (0.0-5.0); LYMPHOCYTES ABSOLUTE AUTO 1.02 10^3/uL (1.00-4.00); LYMPHOCYTES PERCENT AUTO 21.7 % (20.0-40.0); MEAN CORPUSCULAR HEMOGLOBIN 38.5 pg (27.0-31.0); MEAN CORPUSCULAR HGB CONC 35.8 g/dL (32.0-36.0); MEAN CORPUSCULAR VOLUME 107.6 fL (82.0-92.0); MONOCYTES ABSOLUTE AUTO 0.44 10^3/uL (0.10-0.80); MONOCYTES PERCENT AUTO 9.4 % (2.0-8.0); NEUTROPHILS ABSOLUTE AUTO 3.08 10^3/uL (2.50-7.00); NEUTROPHILS PERCENT AUTO 65.6 % (50.0-70.0); PLATELET COUNT,PLT 88 10^3/uL (150-400); RED BLOOD CELL COUNT 3.04 10^6/uL (4.50-6.00); RED CELL DISTRIBUTION WIDTH 14.6 % (11.5-14.5)
[2022-10-09] MEDS: LORazepam 2 MG/ML SDV IVPUSH SCH ×3 (07:28→22:57)
[2022-10-09] MEDS: Ondansetron 4 MG/2 ML SDV IV PRN ×3 (07:42→20:27)
[2022-10-09 07:54] LABS: ALBUMIN 2.4 g/dL (3.40-5.00); ANION GAP 12.8 mmol/L (5-15); BILIRUBIN TOTAL 2.1 mg/dL (0.2-1.0); CALCIUM 7.1 mg/dL (8.7-10.3); CARBON DIOXIDE,CO2 26.8 mmol/L (21.0-32.0); CREATININE 0.54 mg/dL (0.51-1.17); EST CRCL DRUG DOSING (CG) 204.3 mL/min; MAGNESIUM 1.4 mg/dL (1.8-2.4); POTASSIUM,K 3.6 mmol/L (3.5-5.1)
[2022-10-09] MEDS: Diltiazem 180 MG Cap.CD PO SCH (08:13)
[2022-10-09] MEDS: Metoprolol Tartrate 50 MG Tab PO SCH ×2 (08:13→20:19)
[2022-10-09] MEDS: Thiamine 100 MG Tab PO SCH (08:14)
[2022-10-09] MEDS: Topiramate 25 MG Tab PO SCH ×3 (08:14→20:17)
[2022-10-09] MEDS: Folic Acid 1 MG Tab PO SCH (08:14)
[2022-10-09] MEDS: Formoterol/Mometasone 200-5 MCG 8.8 GM Inhaler IH SCH ×2 (08:15→20:17)
[2022-10-09] MEDS ORDERED: Albuterol 8 GM Inhaler INH PRN (09:04)
[2022-10-09] MEDS: Pregabalin 25 MG Cap PO SCH ×2 (09:27→20:18)
[2022-10-09] MEDS: Nicotine 14 MG/24 Hr Patch TRDERM SCH (09:28)
[2022-10-09] MEDS: Venlafaxine 37.5 MG Cap.ER PO SCH (09:28)
[2022-10-09] MEDS ORDERED: Magnesium Sulfate/Water 4 GM in Premix Bag 1 BAG IV ONE (09:30)
[2022-10-09] MEDS ORDERED: QUEtiapine 25 MG Tab PO ONE (10:10)
[2022-10-09] MEDS ORDERED: Carboxymethylcellulose Sodium 0.5% Ophth Soln 15 ML Bottle EYEBOTH PRN (14:21)
[2022-10-09] MEDS ORDERED: Ketorolac 30 MG/ML SDV IVPUSH ONE ×2 (16:57→17:15)
[2022-10-09] MEDS: Rivaroxaban 10 MG Tab PO SCH (17:56)
[2022-10-09] MEDS ORDERED: Ketorolac 30 MG/ML SDV IVPUSH PRN (18:05)
[2022-10-09] MEDS: Acetaminophen 325 MG Tab PO PRN (20:22)
[2022-10-09] MEDS ORDERED: QUEtiapine 25 MG Tab PO SCH (21:00)
[2022-10-10] MEDS: Acetaminophen 325 MG Tab PO PRN (03:01)
[2022-10-10] MEDS: chlordiazePOXIDE 25 MG Cap PO SCH (03:01)
[2022-10-10] MEDS: NS + KCl 20mEq/L 1,000 ML IV SCH (03:06)
[2022-10-10] MEDS: Ondansetron 4 MG/2 ML SDV IV PRN (05:55)
[2022-10-10] MEDS: LORazepam 2 MG/ML SDV IVPUSH SCH (06:01)
[2022-10-10 07:39] LABS: ALBUMIN 2.95 g/dL (3.40-5.00); ANION GAP 15.4 mmol/L (5-15); BILIRUBIN TOTAL 1.6 mg/dL (0.2-1.0); CALCIUM 8.5 mg/dL (8.7-10.3); CREATININE 0.72 mg/dL (0.51-1.17); EST CRCL DRUG DOSING (CG) 153.22 mL/min; MAGNESIUM 1.9 mg/dL (1.8-2.4); POTASSIUM,K 4.4 mmol/L (3.5-5.1); PROTEIN TOTAL,TP 5.9 g/dL (6.4-8.2)
[2022-10-10] MEDS: Diltiazem 180 MG Cap.CD PO SCH (08:51)
[2022-10-10] MEDS: Formoterol/Mometasone 200-5 MCG 8.8 GM Inhaler IH SCH (08:51)
[2022-10-10] MEDS: Folic Acid 1 MG Tab PO SCH (08:52)
[2022-10-10] MEDS: Venlafaxine 37.5 MG Cap.ER PO SCH (08:52)
[2022-10-10] MEDS: Pregabalin 25 MG Cap PO SCH (08:52)
[2022-10-10] MEDS: Topiramate 25 MG Tab PO SCH (08:52)
[2022-10-10] MEDS: Metoprolol Tartrate 50 MG Tab PO SCH (08:52)
[2022-10-10] MEDS: Thiamine 100 MG Tab PO SCH (08:52)
[2022-10-10] MEDS ORDERED: NICOTINE - Remove Patch TRDERM SCH (09:00)
[2022-10-10] MEDS: Nicotine 14 MG/24 Hr Patch TRDERM SCH (09:00)
[2022-10-10 10:55] VITALS: BP 136/88; PULSE 99
== END 2022-10-10 10:47 | disposition home or self-care (01) | DRG 775 ==
LOC: KA.ED 21:20 → KA.MS 23:18 → UNDOADMIN 23:30 → KA.MS 23:30
PROVIDERS: ADMIT Physician Assistant Medical; ATTEND Internal Medicine
DX: F10.220 Alcohol dependence with intoxication, uncomplicated (principal); F32.A Depression, unspecified; E87.6 Hypokalemia; E87.20 Acidosis, unspecified; E83.42 Hypomagnesemia; R74.01 Elevation of levels of liver transaminase levels; I10 Essential (primary) hypertension; F41.9 Anxiety disorder, unspecified; G62.9 Polyneuropathy, unspecified; Z72.0 Tobacco use; Y90.8 Blood alcohol level of 240 mg/100 ml or more; J45.909 Unspecified asthma, uncomplicated; F43.10 Post-traumatic stress disorder, unspecified; Z86.711 Personal history of pulmonary embolism; Z79.01 Long term (current) use of anticoagulants; Z90.49 Acquired absence of other specified parts of digestive tract; Z98.890 Other specified postprocedural states; Z79.899 Other long term (current) drug therapy
CPT/HCPCS: 36415; 71045; 80048; 80053; 80143; 80305-QW; 80307; 83605; 83735; 84484; 85025; 93005; 93010; 96361; 96374; 99223; 99285-25; A9270-GY; J1885; J2060; J2405; J3475; J3480; J7030

== ENCOUNTER 2022-10-13 17:26 | Emergency (ER) | payer BC ==
[2022-10-13 17:52] LABS: BASOPHILS ABSOLUTE AUTO 0.02 10^3/uL (0.00-0.10); BASOPHILS PERCENT AUTO 0.3 % (0.0-1.0); EOSINOPHILS ABSOLUTE AUTO 0.26 10^3/uL (0.10-0.30); EOSINOPHILS PERCENT AUTO 3.9 % (1.0-3.0); HEMATOCRIT 40.8 % (40.0-52.0); HEMOGLOBIN 13.9 g/dL (13.0-17.0); IMMATURE GRAN ABSOLUTE AUTO 0.03 10^3/uL (0.00-0.50); IMMATURE GRAN PERCENT AUTO 0.4 % (0.0-5.0); LYMPHOCYTES ABSOLUTE AUTO 1.44 10^3/uL (1.00-4.00); LYMPHOCYTES PERCENT AUTO 21.5 % (20.0-40.0); MEAN CORPUSCULAR HEMOGLOBIN 38.8 pg (27.0-31.0); MEAN CORPUSCULAR HGB CONC 34.1 g/dL (32.0-36.0); MEAN PLATELET VOLUME 9.4 fL (7.4-10.4); MONOCYTES ABSOLUTE AUTO 0.92 10^3/uL (0.10-0.80); MONOCYTES PERCENT AUTO 13.8 % (2.0-8.0); NEUTROPHILS ABSOLUTE AUTO 4.02 10^3/uL (2.50-7.00); NEUTROPHILS PERCENT AUTO 60.1 % (50.0-70.0); PLATELET COUNT,PLT 179 10^3/uL (150-400); RED BLOOD CELL COUNT 3.58 10^6/uL (4.50-6.00); RED CELL DISTRIBUTION WIDTH 14.8 % (11.5-14.5); WHITE BLOOD CELL COUNT,WBC 6.69 10^3/uL (5.00-10.00)
[2022-10-13 18:05] LABS: ALANINE AMINOTRANSFERASE,ALT 51 U/L (14-63); ALBUMIN 2.82 g/dL (3.40-5.00); ALKALINE PHOSPHATASE 91 U/L (46-116); ASPARTATE AMNIOTRANSFERASE,AST 60 U/L (15-37); BILIRUBIN TOTAL 0.7 mg/dL (0.2-1.0); BLOOD UREA NITROGEN,BUN 9 mg/dL (7-18); CALCIUM 8.4 mg/dL (8.7-10.3); CARBON DIOXIDE,CO2 28.6 mmol/L (21.0-32.0); CHLORIDE,CL 105 mmol/L (98-107); CREATININE 0.61 mg/dL (0.51-1.17); GLUCOSE RANDOM 111 mg/dL (70-140); PROTEIN TOTAL,TP 6.2 g/dL (6.4-8.2); SODIUM,NA 141 mmol/L (136-145)
[2022-10-13 18:22] LABS: ESTIMATED GFR 120 mL/min (>=60)
[2022-10-13 18:24] LABS: ETHANOL BLOOD MEDICAL < 3 mg/dL (NOT DETECTED)
[2022-10-13 18:33] LABS: ANION GAP 11.2 mmol/L (5-15); POTASSIUM,K 3.8 mmol/L (3.5-5.1)
[2022-10-13] MEDS ORDERED: Sodium Chloride 0.9% 1,000 ML IV ONE ×3 (18:50→21:09)
[2022-10-13] MEDS ORDERED: LORazepam 2 MG/ML SDV ONE ×2 (19:40→20:43)
[2022-10-13] MEDS: LORazepam 2 MG/ML SDV IVPUSH ONE (19:41)
[2022-10-13] MEDS ORDERED: LORazepam 2 MG/ML SDV IVPUSH ONE ×3 (19:44→20:45)
[2022-10-13] MEDS ORDERED: Acetaminophen 500 MG Tab ONE (19:45)
[2022-10-13] MEDS ORDERED: Acetaminophen 500 MG Tab PO ONE (19:45)
[2022-10-13] MEDS ORDERED: Adenosine 12 MG/4 ML SDV IVPUSH ONE ×4 (20:11→20:40)
[2022-10-13] MEDS ORDERED: Diltiazem 25 MG/5 ML SDV IVPUSH ONE (20:27)
[2022-10-13] MEDS ORDERED: Diltiazem 125 MG in Sodium Chloride 0.9% 100 ML IV SCH (20:35)
[2022-10-13] MEDS ORDERED: fentaNYL 250 MCG/5 ML SDV ONE (20:43)
[2022-10-13] MEDS ORDERED: fentaNYL 100 MCG/2 ML SDV ONE (20:44)
[2022-10-13] MEDS ORDERED: fentaNYL 100 MCG/2 ML SDV IVPUSH ONE (20:46)
[2022-10-13] MEDS ORDERED: fentaNYL 250 MCG/5 ML SDV IVPUSH ONE (20:50)
[2022-10-13] MEDS ORDERED: Iopamidol 755 Mg/ML 100 ML Bottle IV ONE (21:11)
[2022-10-13] MEDS ORDERED: Sodium Chloride 0.9% 50 ML IV SCH (21:15)
[2022-10-14] MEDS: LORazepam 2 MG/ML SDV IVPUSH ONE (00:50)
[2022-10-14 01:06] VITALS: BP 116/69; PULSE 146
== END 2022-10-13 21:50 ==
LOC: KA.ED 17:26
DX: E86.0 Dehydration (principal); F41.9 Anxiety disorder, unspecified; F32.A Depression, unspecified; F10.230 Alcohol dependence with withdrawal, uncomplicated; I47.1 Supraventricular tachycardia; I10 Essential (primary) hypertension; J45.909 Unspecified asthma, uncomplicated; Z79.899 Other long term (current) drug therapy; Z79.01 Long term (current) use of anticoagulants
CPT/HCPCS: 36415; 71260; 80053; 80307; 83605; 84484; 85025; 85379; 93005; 93010; 96361; 96365; 96375; 96376; 99284; 99291-25; 99292; A9270-GY; J0153; J2060; J3010; J3490; J7030; Q9967

== ENCOUNTER 2023-02-21 19:28 | Emergency (ER) | payer SELFPAY ==
[2023-02-21] MEDS: Sodium Chloride 0.9% 1,000 ML IV ONE (19:56)
[2023-02-21] MEDS: Ondansetron 4 MG/2 ML SDV IVPUSH ONE (19:57)
[2023-02-21] MEDS: HYDROmorphone 1 MG/ML Syringe IVPUSH ONE ×2 (20:00→21:56)
[2023-02-21 20:11] LABS: BASOPHILS ABSOLUTE AUTO 0.03 10^3/uL (0.00-0.10); BASOPHILS PERCENT AUTO 0.3 % (0.0-1.0); HEMATOCRIT 37.1 % (40.0-52.0); HEMOGLOBIN 11.7 g/dL (13.0-17.0); IMMATURE GRAN ABSOLUTE AUTO 0.02 10^3/uL (0.00-0.50); IMMATURE GRAN PERCENT AUTO 0.2 % (0.0-5.0); LYMPHOCYTES ABSOLUTE AUTO 1.73 10^3/uL (1.00-4.00); LYMPHOCYTES PERCENT AUTO 17.1 % (20.0-40.0); MEAN CORPUSCULAR HEMOGLOBIN 24.7 pg (27.0-31.0); MEAN CORPUSCULAR HGB CONC 31.5 g/dL (32.0-36.0); MEAN CORPUSCULAR VOLUME 78.4 fL (82.0-92.0); MEAN PLATELET VOLUME 10.2 fL (7.4-10.4); MONOCYTES ABSOLUTE AUTO 0.97 10^3/uL (0.10-0.80); MONOCYTES PERCENT AUTO 9.6 % (2.0-8.0); NEUTROPHILS ABSOLUTE AUTO 7.06 10^3/uL (2.50-7.00); NEUTROPHILS PERCENT AUTO 69.8 % (50.0-70.0); PLATELET COUNT,PLT 374 10^3/uL (150-400); RED BLOOD CELL COUNT 4.73 10^6/uL (4.50-6.00); RED CELL DISTRIBUTION WIDTH 15.7 % (11.5-14.5); WHITE BLOOD CELL COUNT,WBC 10.11 10^3/uL (5.00-10.00)
[2023-02-21 20:20] LABS: ALBUMIN 3.53 g/dL (3.40-5.00); ANION GAP 15.5 mmol/L (5-15); BILIRUBIN TOTAL 0.5 mg/dL (0.2-1.0); C-REACTIVE PROTEIN 0.76 mg/dL (0.00-0.50); CALCIUM 8.7 mg/dL (8.7-10.3); CARBON DIOXIDE,CO2 23.3 mmol/L (21.0-32.0); CREATININE 0.7 mg/dL (0.51-1.17); EST CRCL DRUG DOSING (CG) 161.89 mL/min; POTASSIUM,K 3.8 mmol/L (3.5-5.1); PROTEIN TOTAL,TP 7.1 g/dL (6.4-8.2)
[2023-02-21] MEDS: Iopamidol 755 Mg/ML 100 ML Bottle IV ONE (20:40)
[2023-02-21] MEDS: Sodium Chloride 0.9% 50 ML IV SCH (20:40)
[2023-02-21 22:02] VITALS: BP 119/89
[2023-02-21] MEDS: Acetaminophen/HYDROcodone 325-5 MG Tab PO ONE (22:08)
[2023-02-21] MEDS: Alum Hydrox/Mag Hydrox/Simeth 30 ML, Lidocaine 2% 15 ML PO ONE ×2 (22:09)
[2023-02-21 22:14] VITALS: PULSE 87
== END 2023-02-21 22:20 | disposition home or self-care (01) ==
LOC: KA.ED 19:28
DX: K26.4 Chronic or unspecified duodenal ulcer with hemorrhage (principal); R19.7 Diarrhea, unspecified; I10 Essential (primary) hypertension; J45.909 Unspecified asthma, uncomplicated; Z90.49 Acquired absence of other specified parts of digestive tract; Z79.899 Other long term (current) drug therapy
CPT/HCPCS: 74177; 80053; 82150; 82272; 83690; 85025; 86140; 87045; 87046; 87324; 87449; 96361; 96374; 96375; 96376; 99284-25; A9270-GY; J1170; J2405; J3490; J7030; Q9967